=== PATIENT | male | born 1950 | race Two or more races ===

== ENCOUNTER → 2020-07-13 | Outpatient (CLI) | payer MEDICARE, OTHER ==
--- NOTE | 2020-07-13 13:58 | RADIOLOGY REPORT (SQ) ---
EXAM DESCRIPTION: CAROTID DOPPLER IMAGES COMPLETED DATE/TIME: 07/13/2020 12:53 pm REASON FOR STUDY: TIA G45.1 CAROTID ARTERY SYNDROME (HEMISPHERIC) COMPARISON: None. TECHNIQUE: Grayscale ultrasound, Doppler velocity and spectra, and color Doppler images acquired of the extra-cranial carotid and vertebral arteries. Images stored on PACS. LIMITATIONS: Patient movement. FINDINGS: RIGHT CAROTID CCA Velocities: Within normal limits. ICA Velocities Peak systolic 109 cm/s. End diastolic 25 cm/s. Proximal ICA/CCA peak systolic ratio 1.6. Small amount of plaque in the proximal ICA. LEFT CAROTID CCA Velocities: Within normal limits. ICA Velocities Peak systolic 87 cm/s. End diastolic 32 cm/s. Proximal ICA/CCA peak systolic ratio 1.4. Small amount plaque in the carotid bulb and proximal ICA. VERTEBRAL ARTERIES: Antegrade flow. Normal waveforms. SUBCLAVIAN ARTERIES: No finding. OTHER: No other significant finding. IMPRESSION: NO HEMODYNAMICALLY SIGNIFICANT STENOSIS. COMMENT: Quality ID #[id number]: Velocity criteria are extrapolated from the diameter data as defined by t he Society of Radiologists in Ultrasound Consensus Conference. Radiology 2003: 229; 340-346. TECHNICAL DOCUMENTATION: JOB ID: [id number] 2010 [employer]- All Rights Reserved Reading location - IP/workstation name: [email or web address]
== END ==
LOC: RAD 08:38
PROVIDERS: ATTEND Family Medicine
DX: G45.1 Carotid artery syndrome (hemispheric) (principal)
CPT/HCPCS: 93880

== ENCOUNTER 2020-09-07 08:44 | Emergency (ER) | payer MEDICARE, OTHER ==
[2020-09-07 11:26] LABS: ABSOLUTE BASOPHILS # (AUTO) 0.1 10^3/uL (0.0-0.2); ABSOLUTE EOSINOPHILS # (AUTO) 0.5 10^3/uL (0.0-0.6); ABSOLUTE LYMPHOCYTES (AUTO) 4.9 10^3/uL (0.5-4.7); ABSOLUTE MONOCYTES (AUTO) 1.2 10^3/uL (0.1-1.4); ABSOLUTE NEUT (AUTO) 7.5 10^3/uL (1.7-8.2); EOSINOPHILS % (AUTO) 3.2 % (0-6); HEMATOCRIT 45.5 % (37.9-51.0); HEMOGLOBIN 15.1 g/dL (13.5-17.0); LYMPHOCYTES % (AUTO) 34.8 % (13-45); MEAN CORPUSCULAR HEMOGLOBIN 29.5 pg (27.0-33.4); MEAN CORPUSCULAR HGB CONC 33.1 g/dL (32.0-36.0); MEAN CORPUSCULAR VOLUME 89 fl (80-97); MONOCYTES % (AUTO) 8.3 % (3-13); PLATELET COUNT 448 10^3/uL (150-450); RED BLOOD COUNT 5.11 10^6/uL (4.35-5.55); RED CELL DISTRIBUTION WIDTH 13.9 % (11.5-14.0); SEGMENTED NEUTROPHILS % (AUTO) 52.7 % (42-78); TOTAL CELLS COUNTED % (AUTO) 100 %; WHITE BLOOD COUNT 14.1 10^3/uL (4.0-10.5)
[2020-09-07 11:27] LABS: APPEARANCE,URINE CLEAR; BILIRUBIN,URINE NEGATIVE (NEGATIVE); COLOR,URINE YELLOW; GLUCOSE, URINE >=500 mg/dL (NEGATIVE); KETONES,URINE NEGATIVE (NEGATIVE); LEUKOCYTE ESTERASE,URINE NEGATIVE (NEGATIVE); NITRITE,URINE NEGATIVE (NEGATIVE); PROTEIN,URINE 30 mg/dL (NEGATIVE); URINE SPECIFIC GRAVITY 1.026; UROBILINOGEN,URINE NEGATIVE mg/dL (<2.0)
[2020-09-07 11:44] LABS: ALKALINE PHOSPHATASE 129 U/L (38-126); ANION GAP 12 (5-19); ASPARTATE AMINO TRANSFERASE 31 U/L (17-59); BILIRUBIN,DIRECT 0.2 mg/dL (0.0-0.4); BLOOD UREA NITROGEN 19 mg/dL (7-20); CALCIUM 9.5 mg/dL (8.4-10.2); CARBON DIOXIDE 31 mmol/L (22-30); CHLORIDE 98 mmol/L (98-107); POTASSIUM 3.5 mmol/L (3.6-5.0); TOTAL PROTEIN 7.1 g/dL (6.3-8.2)
--- NOTE | 2020-09-07 11:49 | RADIOLOGY REPORT (SQ) ---
EXAM DESCRIPTION: CHEST SINGLE VIEW IMAGES COMPLETED DATE/TIME: 09/07/2020 10:31 am REASON FOR STUDY: difficulty breathing COMPARISON: None. EXAM PARAMETERS: NUMBER OF VIEWS: One view. TECHNIQUE: Single frontal radiographic view of the chest acquired. RADIATION DOSE: NA LIMITATIONS: None. FINDINGS: LUNGS AND PLEURA: Lungs are hyperinflated. No focal consolidation. Trace fluid in the fi ssures. No layering effusion. No pneumothorax. MEDIASTINUM AND HILAR STRUCTURES: No masses. Contour normal. HEART AND VASCULAR STRUCTURES: Moderate cardiomegaly. No pulmonary vascular congestion. BONES: No acute findings. HARDWARE: None in the chest. OTHER: No other significant finding. IMPRESSION: No acute cardiopulmonary TECHNICAL DOCUMENTATION: JOB ID: [id number] 2010 [employer]- All Rights Reserved Reading location - IP/workstation name: [email or web address]
[2020-09-07 11:58] LABS: GLUCOSE 51 mg/dL (75-110)
[2020-09-07] MEDS ORDERED: DEXTROSE 50%-WATER 25 GM/50 ML DISP.SYRIN IV ONE (12:05)
[2020-09-07] MEDS ORDERED: ASPIRIN 81 MG TABLET, CHEWABLE PO ONE (12:22)
[2020-09-07] MEDS ORDERED: ENOXAPARIN SODIUM INJ 30 MG/0.3 ML DISP.SYRIN SUBCUT STA (12:31)
--- NOTE | 2020-09-07 12:46 | ER Document Report ---
ED General - General Chief Complaint: Breathing Difficulty Stated Complaint: SHORTNESS OF BREATH Time Seen by Provider: 09/07/20 11:40 Primary Care Provider: LARON VERAS MD [Primary Care Provider] - Follow up as needed TRAVEL OUTSIDE OF THE [place] IN LAST 30 DAYS: No - HPI Quality of pain: No pain Context: This is a 70-year-old male with a history of CABG in 2002, diabetes, hyperlipidemia, hypertension, tobacco smoker until he quit in 2002, presenting to the emergency department complaining of shortness of breath for about a week. Patient states the shortness of breath is worse when he lays flat. Patient did not initially mention that he has a extensive history of heart trouble wound healing initially arrived to the ED but eventually mentioning that he typically presents with shortness of breath when he is having a problem with his heart. Patient states that he went to see his PCP this morning; he said they did not do a EKG at the office but directed him to come to the ED for further evaluation. Patient states his shortness of breath is exacerbated by lying flat and is better when he sits up or stands up. Patient is denying chest pain or chest pressure. Patient denies history of infection with COVID-19, known exposure to COVID-19 positive persons, known exposure to persons under investigation for COVID-19. Patient denies illicit drug use. Associated symptoms: Other - See HPI Exacerbated by: Other - See HPI Relieved by: Other - See HPI - Related Data Allergies/Adverse Reactions: metronidazole [From Flagyl] Allergy (Verified 09/07/20 10:48) Penicillins Allergy (Verified 09/07/20 10:48) Home Medications: tramadol. duloxetine. furosemide. clopidogrel. coreg. lantus. novolog. pantoprazole. telmisartan. amlodipine. gabapentin. bydureon Past Medical History - General Information source: Patient - Social History Smoking Status: Former Smoker Chew tobacco use (# tins/day): No Frequency of alcohol use: None Drug Abuse: None Family History: CAD Patient has suicidal ideation: No Patient has homicidal ideation: No - Past Medical History Cardiac Medical History: Reports: Hx Hypercholesterolemia, Hx Hypertension Endocrine Medical History: Reports: Hx Diabetes Mellitus Type 2 Musculoskeletal Medical History: Reports Hx Arthritis Past Surgical History: Reports: Hx Cardiac Surgery - quad/bypass Review of Systems - Review of Systems Constitutional: No symptoms reported EENT: No symptoms reported Cardiovascular: denies: Chest pain Respiratory: Short of breath Gastrointestinal: No symptoms reported Genitourinary: No symptoms reported Male Genitourinary: No symptoms reported Musculoskeletal: No symptoms reported Skin: No symptoms reported Hematologic/Lymphatic: No symptoms reported Neurological/Psychological: No symptoms reported -: Yes All other systems reviewed and negative Physical Exam - Vital signs Vitals: Temp Pulse Resp BP Pulse Ox 97.7 F 71 18 135/87 H 99 09/07/20 08:49 09/07/20 08:49 09/07/20 08:49 09/07/20 08:49 09/07/20 08:49 - Notes Notes: CONSTITUTIONAL [Vital signs reviewed, Patient appears anxious, Alert and oriented X 3, Normal stature.] HEAD [Atraumatic, Normocephalic.] EYES [Eyes are normal to inspection, No discharge from eyes, Extraocular muscles intact, Sclera are normal, Conjunctiva are normal.] ENT [External Ears normal to inspection, Nose examination normal, Mouth normal to inspection.] NECK [Normal ROM, No jugular venous distention, No meningeal signs,] RESPIRATORY CHEST [Chest is nontender, Breath sounds normal, No respiratory distress.] CARDIOVASCULAR [RRR, No murmurs, Normal S1 S2, No rub, No gallop.] ABDOMEN [Abdomen is nontender, No pulsatile masses, No other masses, Bowel sounds normal, No distension, No peritoneal signs, No hernias.] BACK [There is no CVA Tenderness, There is no tenderness to palpation, Normal inspection.] UPPER EXTREMITY [Inspection normal, No cyanosis, No clubbing, No edema, LOWER EXTREMITY [Inspection normal, No cyanosis, No clubbing, No edema, No calf tenderness, NEURO [No focal motor deficits, No focal sensory deficits, Speech normal.] SKIN [Skin is warm, Skin is dry, Skin is normal color.] PSYCHIATRIC [Normal affect. ] Course - Re-evaluation Re-evalutation: 09/07/20 13:23 Results of ED MSE, planning to EKG and troponin discussed with patient. Re commendation for transfer to facility with interventional cardiology capability discussed with patient. Patient was agreeable to transfer. All questions were answered prior to transfer. 09/07/20 13:51 Transport has arrived to take patient to [facility] for interventional cardiology. This MD went to the patient's bedside. Patient is awake alert and oriented x3, pleasant, appreciative of care and appears to be in no acute distress. Patient appears stable for transfer at this time. - Vital Signs Vital signs: Temp Pulse Resp BP Pulse Ox 97.7 F 71 14 148/109 H 98 09/07/20 08:49 09/07/20 08:49 09/07/20 13:41 09/07/20 13:41 09/07/20 13:41 - Laboratory Result Diagrams: 09/07/20 11:17 09/07/20 11:17 Laboratory results interpreted by me: 09/07/20 09/07/20 09/07/20 11:17 11:17 11:17 WBC 14.1 H Absolute Lymphs (auto) 4.9 H Potassium 3.5 L Carbon Dioxide 31 H Glucose 51 L Alkaline Phosphatase 129 H NT-Pro-B Natriuret Pep Urine Protein 30 H Urine Glucose (UA) >=500 H 09/07/20 11:17 WBC Absolute Lymphs (auto) Potassium Carbon Dioxide Glucose Alkaline Phosphatase NT-Pro-B Natriuret Pep 7240 H Urine Protein Urine Glucose (UA) - Diagnostic Test Radiology reviewed: Reports reviewed - EKG Interpretation by Me Additional EKG results interpreted by me: 09/07/20 13:11 EKG obtained on 09/07/2020 at 1203 hrs. was interpreted by this MD. Findings: Sinus rhythm, rate 62, first-degree AV block is present, P waves preceding QRS complexes, nonspecific intraventricular conduction delay is present, QTC is 439, ST segment elevation of 1 mm appears to be present in leads V1 through V4 with reciprocal depression being present in leads II, III and aVF. These findings are concerning for a STEMI. Impression: STEMI. There are no prior EKGs immediately available for comparison. - Consults Dr. Regan Lin Time consulted: 12:21 - Dr. Lin accepted pt for transfer to his facility. He conferred with Dr. Nicole, Negotiator at [facility]. Dr. Nicole did not recommend thrombolytics Reason for consultation: 09/07/20 13:18 STEMI, no interventional cardiology services present at this facility Dr. Julian Mendez, Negotiator at [facility] Time consulted: 12:35 - Dr. Mendez agreed with this MD's EKG interpretation. He recommended transfer to facility with IC capability Reason for consultation: 09/07/20 13:21 abnormal EKG Critical Care Note - Critical Care Note Total time excluding time spent on procedures (mins): 120 - STEMI management Discharge - Discharge Clinical Impression: STEMI (ST elevation myocardial infarction) Qualifiers: Involved coronary artery: LAD coronary artery Qualified Code(s): I21.02 - ST elevation (STEMI) myocardial infarction involving left anterior descending coronary artery Condition: Stable Disposition: Critical access hospital Referrals: LARON VERAS MD [Primary Care Provider] - Follow up as needed
[2020-09-07 13:48] VITALS: BP 148/109
[2020-09-07] MEDS ORDERED: CLOPIDOGREL BISULFATE 300 MG TABLET PO ONE (15:15)
[2020-09-07] MEDS ORDERED: ENOXAPARIN SODIUM INJ 30 MG/0.3 ML DISP.SYRIN IV STA (15:43)
[2020-09-07] MEDS ORDERED: CLOPIDOGREL BISULFATE 300 MG TABLET ONE (19:48)
[2020-09-07] MEDS ORDERED: ENOXAPARIN SODIUM INJ 30 MG/0.3 ML DISP.SYRIN ONE (19:48)
[2020-09-07] MEDS ORDERED: ASPIRIN 81 MG TABLET, CHEWABLE ONE (19:48)
--- NOTE | 2020-09-08 00:35 | EKG REPORT ---
SEVERITY:- ABNORMAL ECG - SINUS RHYTHM FIRST DEGREE AV BLOCK NONSPECIFIC INTRAVENTRICULAR CONDUCTION DELAY INFERIOR INFARCT, AGE INDETERMINATE : Confirmed by: Sharad Nolasco 08-Sep-2020 00:35:30
== END 2020-09-07 14:00 | disposition short-term general hospital (02) ==
LOC: ER 08:44
DX: I21.02 ST elevation (STEMI) myocardial infarction involving left anterior descending coronary artery (principal); I44.0 Atrioventricular block, first degree; E11.9 Type 2 diabetes mellitus without complications; I10 Essential (primary) hypertension; R06.02 Shortness of breath; M19.90 Unspecified osteoarthritis, unspecified site; Z79.899 Other long term (current) drug therapy; Z79.4 Long term (current) use of insulin; Z87.891 Personal history of nicotine dependence; Z95.1 Presence of aortocoronary bypass graft; Z88.1 Allergy status to other antibiotic agents; Z88.0 Allergy status to penicillin; Z82.49 Family history of ischemic heart disease and other diseases of the circulatory system
CPT/HCPCS: 93005; 99285; 96374; 96375; 36415; 82962; 85025; 80053; 81001; 84484; 83880; 71045; 93010; A9270 ×2; J3490; J1650